=== PATIENT | female | born 1970 | race Two or more races ===

== ENCOUNTER 2025-05-09 07:57 | Outpatient (RCR) | payer MEDICAID, SELFPAY | END 2025-06-02 23:59 | disposition home or self-care (01) | LOC: SCTC 07:57 | PROVIDERS: PCP Physician Assistant Medical; Referring Provider Nurse Practitioner Family; Visit Provider Nurse Practitioner Family | DX: Z76.89 Persons encountering health services in other specified circumstances (principal); Z86.718 Personal history of other venous thrombosis and embolism; Z79.01 Long term (current) use of anticoagulants; Z86.711 Personal history of pulmonary embolism; T82.898A Other specified complication of vascular prosthetic devices, implants and grafts, initial encounter; Y84.8 Other medical procedures as the cause of abnormal reaction of the patient, or of later complication, without mention of misadventure at the time of the procedure; Z79.82 Long term (current) use of aspirin | CPT/HCPCS: 99213; G0463 ==